=== PATIENT | male | born 1960 | race Caucasian/White ===

== ENCOUNTER 2021-05-09 18:35 | Outpatient (CLI) | payer OTHER ==
--- NOTE | 2021-05-10 13:21 | Ultrasound Report ---
PROCEDURE: Abdomen Limited INDICATIONS: abn lfts TECHNIQUE: Real-time scanning was performed of the abdominal and retroperitoneal organs, with image documentatio n. COMPARISON: None. FINDINGS: The liver is at the upper limits of normal in size measuring 18.9 cm in length. The parenchyma is dif fusely moderately hyperechoic. There are several simple cysts, many multilobulated or finely septated . One of the largest is in the left lobe measuring 3.5 x 2.3 x 3.2 cm. The largest in the right hepat ic lobe measures 3.5 x 3.0 x 2.9 cm. No vascularity to or within any of these cysts. There is subopti mal visualization of the coral hepatis area due to lack of good acoustic window. The visible portion of the common duct is normal caliber at 4.3 mm. No intrahepatic biliary dilatation. Gallbladder is normal without stones, sludge, wall thickening, or pericholecystic fluid. The pancreas is not well seen. The given images of the right kidney are normal without hydronephrosis . Right kidney measures 12.3 cm in length and the cortex is normal in thickness and echogenicity. IMPRESSION: 1. Hepatic echogenicity suggesting steatosis or other intrinsic liver disease. 2. Suboptimal visualization of the coral hepatis area. 3. Several hepatic cysts. 4. Nonvisualization of the pancreas. 5. For further evaluation of the liver, MR imaging may be useful and could be considered. Reviewed by: Janice Nelson MD on 05/10/2021 1:19 PM PST Approved by: Janice Nelson MD on 05/10/2021 1:19 PM PST Station ID: [id number]
== END 2021-05-09 18:36 | disposition home or self-care (01) ==
LOC: DI 18:35
PROVIDERS: ATTEND Nurse Practitioner Family
DX: K76.89 Other specified diseases of liver (principal)

== ENCOUNTER 2021-09-27 08:00 | Outpatient (CLI) | payer OTHER ==
--- NOTE | 2021-09-27 17:05 | XRAY Report ---
PROCEDURE: Shoulder 3 View RT INDICATIONS: RIGHT SHOUDLER PAIN TECHNIQUE: 3 views of the shoulder were acquired. COMPARISON: None. FINDINGS: Bones: No fractures or dislocations. Mild spurring and joint space loss at the AC joint. No suspicio us bony lesions. Visualized ribs appear intact. Soft tissues: No suspicious soft tissue calcifications. IMPRESSION: 1. Intact right shoulder. 2. Mild degenerative changes at the acromioclavicular joint. Reviewed by: Janice Nelson MD on 09/27/2021 5:03 PM PDT Approved by: Janice Nelson MD on 09/27/2021 5:03 PM PDT Station ID: [id number]
== END 2021-09-27 23:59 | disposition home or self-care (01) ==
LOC: DI.S 08:00
PROVIDERS: ATTEND Nurse Practitioner Family
DX: M19.011 Primary osteoarthritis, right shoulder (principal)

== ENCOUNTER → 2023-08-22 | Outpatient (CLI) | payer OTHER ==
--- NOTE | 2023-08-22 17:19 | XRAY Report ---
* REVISED: THIS REPORT WAS ORIGINALLY SIGNED ON 08/22/2023 @ 5:18 PM. REPORT MOVED TO CORRECT ACCOUNT ON 10/27/2023. * PROCEDURE: Lumbar Spine 2-3V INDICATIONS: RIGHT HIP PAIN TECHNIQUE: 3 views of the lumbar spine were acquired. COMPARISON: None. FINDINGS: Bones: 5 [id number] vertebrae are present. No vertebral body compression fractures. There is approximately 19 degrees right convex scoliosis centered at L3. Moderate to severe degenerative changes are present throughout the lumbar spine including intervertebral disc space narrowing, endplate sclerosis and osteophytosis. Soft tissues: Overlying bowel gas pattern is normal. No suspicious soft tissue calcifications. IMPRESSION: 1. Right convex scoliosis and moderate to severe degenerative change. No compression deformities. Reviewed by: Radha Glover MD on 08/22/2023 5:18 PM PST Approved by: Radha Glover MD on 08/22/2023 5:18 PM PST Station ID: [id number]
--- NOTE | 2023-08-22 17:21 | XRAY Report ---
* REVISED: THIS REPORT WAS ORIGINALLY SIGNED ON 08/22/2023 @ 5:20 PM. REPORT MOVED TO CORRECT ACCOUNT ON 10/27/2023. PROCEDURE: Hip w/Pelvis 2-3V RT INDICATIONS: RIGHT HIP PAIN TECHNIQUE: 2 views of the hip were acquired. COMPARISON: None. FINDINGS: Bones: No acute fracture or dislocation. There is moderate right and mild left hip joint space narrowing. Mild subchondral cystic changes are noted at the right femoral head. No suspicious bony lesions. Soft tissues: No suspicious soft tissue calcifications or masses. IMPRESSION: Moderate right and mild left hip osteoarthritis. Reviewed by: Radha Glover MD on 08/22/2023 5:20 PM PST Approved by: Radha Glover MD on 08/22/2023 5:20 PM PST Station ID: [id number]
== END ==
LOC: DI.S 16:00
PROVIDERS: ATTEND Registered Nurse
DX: M16.0 Bilateral primary osteoarthritis of hip (principal); M47.816 Spondylosis without myelopathy or radiculopathy, lumbar region; M41.9 Scoliosis, unspecified